=== PATIENT | male | born 1950 | race Caucasian/White ===

== ENCOUNTER 2022-11-17 07:02 | Day surgery (SDC) | payer MEDICARE, OTHER ==
[2022-11-17] MEDS ORDERED: LACTATED RINGERS 1,000 ML IV ONE (07:27)
--- NOTE | 2022-11-17 08:23 | ANESTHESIA ---
Pre-Anesthesia VS, & Labs - Diagnosis screening - Procedure colonoscopy Vital Signs: Temp Pulse Resp BP Pulse Ox O2 Flow Rate 36.6 C 52 L 16 136/93 H 97 0 11/17/22 07:27 11/17/22 07:27 11/17/22 07:27 11/17/22 07:27 11/17/22 07:27 11/17/22 07:27 Height: 5 ft 7 in Weight (kg): 79.1 kg Body Mass Index: 27.3 BMI Classification: Overweight - NPO >8 hours Home Medications and Allergies Home Medications: Ambulatory Orders Levothyroxine [Synthroid] 1 tab PO DAILY 11/17/22 Levothyroxine [Synthroid] 1 tab PO DAILY 11/17/22 Allergies/Adverse Reactions: Allergies Allergy/AdvReac Type Severity Reaction Status Date / Time No Known Drug Allergies Allergy Verified 11/17/22 07:34 Anes History & Medical History - Anesthetic History Anesthesia Complications: reports: No previous complications - Medical History Cardiovascular: reports: None Pulmonary: reports: None History of Cancer?: No - Surgical History General: reports: Hiatal hernia repair Eyes Ears Nose Throat (EENT): reports: Tonsil/Adenoidectomy Exam General: Alert, Oriented x3 Dental: WNL Mallampati classification: II Respiratory: Lungs clear Cardiovascular: Regular rate Plan Anesthesia Type: Total IV Consent for Procedure(s) Verified and Reviewed: Yes Code Status: Attempt Resuscitation ASA classification: 2-Mild systemic disease Is this case an emergency?: No
[2022-11-17] MEDS ORDERED: PROPOFOL 200 MG/20 ML VIAL IVP ONE (09:06)
[2022-11-17] MEDS ORDERED: PROPOFOL 500 MG/50 ML 500 MG/50 ML VIAL ONE (09:06)
[2022-11-17] MEDS ORDERED: LACTATED RINGERS 900 ML IV ONE (09:32)
[2022-11-17 09:55] VITALS: BP 98/46
--- NOTE | 2022-11-17 09:58 | ANESTHESIA POST OP EVALUATION ---
Anesthesia Post Eval - Post Anesthesia Eval Vitals: Last Vital Signs Temp 36.3 C L 11/17/22 09:53 Pulse 49 L 11/17/22 09:53 Resp 13 11/17/22 09:53 BP 98/46 L 11/17/22 09:53 Pulse Ox 97 11/17/22 09:53 O2 Flow Rate 0 11/17/22 07:27 CV Function Including HR & BP: Stable Pain Control: Satisfactory Nausea & Vomiting: Negative Mental Status: Baseline Respiratory Status: Airway Patent Hydration Status: Satisfactory Anesthesia Complications: None
== END 2022-11-17 07:03 | disposition home or self-care (01) ==
LOC: SDS 07:02
PROVIDERS: ATTEND Surgery
PROC: 0DB58ZX Excision of Esophagus, Via Natural or Artificial Opening Endoscopic, Diagnostic (ICD-10-PCS; principal; 2022-11-17 08:15)
PROC: 0DB78ZX Excision of Stomach, Pylorus, Via Natural or Artificial Opening Endoscopic, Diagnostic (ICD-10-PCS; 2022-11-17 08:15)
DX: Z12.11 Encounter for screening for malignant neoplasm of colon (principal); K57.30 Diverticulosis of large intestine without perforation or abscess without bleeding; K64.8 Other hemorrhoids; K21.9 Gastro-esophageal reflux disease without esophagitis; R13.10 Dysphagia, unspecified; K26.9 Duodenal ulcer, unspecified as acute or chronic, without hemorrhage or perforation; K29.51 Unspecified chronic gastritis with bleeding; K20.90 Esophagitis, unspecified without bleeding; Z87.891 Personal history of nicotine dependence
CPT/HCPCS: 43239; G0121; J7120

== ENCOUNTER 2022-12-07 06:51 | Outpatient (CLI) | payer MEDICARE, OTHER ==
--- NOTE | 2022-12-07 14:12 | Ultrasound Report ---
PROCEDURE: Aorta Screening INDICATIONS: AAA SCREENING TECHNIQUE: Real time scanning was performed of the aorta and iliac arteries, with image documentatio n. COMPARISON: None FINDINGS: Aorta: Proximal aortic diameter measures 2.7 x 2.5 cm. Mid-aorta measures 2.0 x 2.0 cm. Distal aor tic diameter is 1.7 x 1.8 cm. Iliac arteries: Right common iliac artery measures 1.1 x 1.1 cm. Left common iliac artery measures 1.1 x 1.1 cm. IMPRESSION: No aortic aneurysmal dilation. Reviewed by: Kimmy Gavin MD on 12/07/2022 2:11 PM PST Approved by: Kimmy Gavin MD on 12/07/2022 2:11 PM PST Station ID: [id number]
== END 2022-12-07 06:52 | disposition home or self-care (01) ==
LOC: DI 06:51
PROVIDERS: ATTEND Internal Medicine
DX: Z13.6 Encounter for screening for cardiovascular disorders (principal)

== ENCOUNTER 2023-02-02 07:04 | Day surgery (SDC) | payer MEDICARE, OTHER ==
[2023-02-02] MEDS ORDERED: LACTATED RINGERS 1,000 ML IV ONE ×2 (07:35→09:02)
[2023-02-02] MEDS ORDERED: PROPOFOL 200 MG/20 ML VIAL IVP ONE (07:52)
--- NOTE | 2023-02-02 08:33 | ANESTHESIA ---
Pre-Anesthesia VS, & Labs - Diagnosis GERD, hx gastric ulcers - Procedure EGD Vital Signs: Temp Pulse Resp BP Pulse Ox O2 Flow Rate 36.1 C L 55 L 19 133/82 H 99 02/02/23 07:23 02/02/23 07:23 02/02/23 07:23 02/02/23 07:23 02/02/23 07:23 Height: 5 ft 7 in Weight (kg): 82 kg Body Mass Index: 28.3 BMI Classification: Overweight - NPO >8 hours Home Medications and Allergies Levothyroxine [Synthroid] 1 tab PO DAILY 11/17/22 Allergies/Adverse Reactions: Allergies Allergy/AdvReac Type Severity Reaction Status Date / Time No Known Drug Allergies Allergy Verified 11/17/22 07:34 Anes History & Medical History - Anesthetic History Anesthesia Complications: reports: No previous complications - Medical History Cardiovascular: reports: None Pulmonary: reports: None Gastrointestinal: reports: GERD, GI bleed, Ulcers, Hiatal hernia Urinary: reports: None Neuro: reports: None Musculoskeletal: reports: None Endocrine/Autoimmune: reports: HyPOthyroidism Skin: reports: None Smoking Status: Never smoker Psychosocial: reports: No issues indicated History of Cancer?: No - Surgical History General: reports: Hiatal hernia repair, EGD Eyes Ears Nose Throat (EENT): reports: Tonsil/Adenoidectomy Exam General: Alert, Oriented x3, Cooperative, No acute distress Dental: WNL Mouth Openin Fingerbreadth Neck Mobility: Normal Mallampati classification: II Thyromental Distance: 4-6 cm Mental/Cognitive Status: Alert/Oriented X3, Normal for patient Plan Anesthesia Type: General, Total IV Consent for Procedure(s) Verified and Reviewed: Yes Code Status: Attempt Resuscitation ASA classification: 2-Mild systemic disease Is this case an emergency?: No
[2023-02-02 09:34] VITALS: BP 112/75
--- NOTE | 2023-02-02 16:25 | ANESTHESIA POST OP EVALUATION ---
Anesthesia Post Eval - Post Anesthesia Eval Vitals: Last Vital Signs Temp 36.1 C L 02/02/23 09:19 Pulse 50 L 02/02/23 09:19 Resp 18 02/02/23 09:19 BP 112/75 02/02/23 09:19 Pulse Ox 99 02/02/23 09:19 O2 Flow Rate CV Function Including HR & BP: Stable Pain Control: Satisfactory Nausea & Vomiting: Negative Mental Status: Baseline Respiratory Status: Airway Patent Hydration Status: Satisfactory Anesthesia Complications: None
== END 2023-02-02 07:05 | disposition home or self-care (01) ==
LOC: SDS 07:04
PROVIDERS: ATTEND Surgery
DX: K21.9 Gastro-esophageal reflux disease without esophagitis (principal); Z87.11 Personal history of peptic ulcer disease; Z87.891 Personal history of nicotine dependence
CPT/HCPCS: 43235; J7120